=== PATIENT | female | born 1940 | race Caucasian/White ===

== ENCOUNTER → 2018-12-04 | Day surgery (SDC) | payer MEDICARE ==
[2018-11-29 15:46] LABS: BASOPHILS # (AUTO) 0.1 (0.0-0.1); BASOPHILS % 0.6 % (0.0-1.0); EOSINOPHILS % 0.1 % (0.0-6.0); HEMATOCRIT 45.1 % (34.2-44.1); HEMOGLOBIN 14.8 g/dL (12.0-16.0); LYMPHOCYTES # (AUTO) 2.3 (1.0-3.2); LYMPHOCYTES % 27.3 % (18.0-39.1); MEAN CORPUSCULAR HEMOGLOBIN 32.1 pg (28-32); MEAN CORPUSCULAR HGB CONC 32.8 g/dL (31-35); MEAN CORPUSCULAR VOLUME 97.8 fL (81-99); MONOCYTES # (AUTO) 0.7 (0.2-0.8); MONOCYTES % 7.9 % (4.4-11.3); NEUTROPHILS # (AUTO) 5.4 (2.1-6.9); NEUTROPHILS % 63.7 % (38.7-80.0); PLATELET COUNT 302 x10e3/uL (140-360); RED BLOOD COUNT 4.61 x10e6/uL (3.6-5.1); RED CELL DISTRIBUTION WIDTH 13.9 % (11.7-14.4)
[~2018-12-04] MED LIST: FENTANYL CITRATE/PF 100MCG/2 ML INJ ONE; GLUCAGON FOR INJ 1 MG VIAL ONE; LEVOTHYROXINE50 MCG PO; MIDAZOLAM HCL 2 MG/2 ML VIAL ONE; VERAPAMIL ER120 MG PO
--- OUTSIDE RECORDS SUMMARY | 2018-12-04 10:14 | XMS REPORT | Clinical Summary ---
Author Author Antonio [facility] Organization [facility] Address Unknown Phone Unavailable Care Team Providers Care Flight Controls Engineer Name Role Phone Asked, No Pcp PCP Unavailable Allergies Comments Active Allergy Reactions Severity Noted Date Prochlorperazine 08/16/2017 Medications End Date Status Medication Sig Dispensed Refills Start Date Active verapamil extended 0 release (VERELAN) 240 MG 7 24 hr capsule Active levothyroxine (SYNTHROID, 0 LEVOXYL) 50 mcg tablet 7 Active traMADol (ULTRAM) 50 mg 0 tablet 7 Active ergocalciferol (VITAMIN Take 50,000 0 D2) 50,000 unit capsule Units by mouth once a week. Active Problems Not on file Social History Date Tobacco Use Types Packs/Day Years Used Never Smoker Alcohol Use Drinks/Week oz/Week Comments No Sex Assigned at Date Recorded Not on file Industry Job Start Date Occupation Not on file Not on file Not on file Travel End Travel History Travel Start No recent travel history available. Last Filed Vital Signs Not on file Plan of Treatment Health Maintenance Due Date Last Done Comments BREAST CANCER SCREENING 1992 COLON CANCER SCREENING 1992 SHINGLES VACCINES (1 of 1992 2) PNEUMOCOCCAL 12/22/2007 POLYSACCHARIDE VACCINE AGE 65 AND OVER PNEUMOCOCCAL-13 12/22/2007 INFLUENZA VACCINE 05/15/2018 Results Not on fileafter 12/03/2017 Insurance Payer Benefit Subscriber ID Type Phone Address Plan / Group MEDICARE MEDICARE xxxxxxxxxx Medicare [place] PART A AND B CIGNA CIGNA xxxxxxxxxxx HMO HMO/POS CIGNA CIGNA xxxxxxxxxxx HMO HMO/POS MEDICAID MEDICAID xxxxxxxxx Medicaid Advance Directives Patient has advance care planning documents on file. For more information, gilda santos contact: Paco Sanchez [address] [place] [address]
--- OUTSIDE RECORDS SUMMARY | 2018-12-04 10:14 | XMS REPORT ---
Author Author [facility] Address Unknown Phone Unavailable Care Team Providers Care Edge Beader Name Role Phone KAYLA BUTTS PP Unavailable Problems This patient has no known problems. Allergies, Adverse Reactions, Alerts This patient has no known allergies or adverse reactions. Medications This patient has no known medications. Encounters Start Date/Time End Date/Time Encounter Type Admission Type Attending Clinicians Care Facility Care Department Encounter ID 2017-07-24 07:18:00 2017-07-24 07:18:00 Outpatient [facility] [id number] Results Test Description Test Time Test Comments Text Results Atomic Results Result Comments BONE DENSITOMETRY 2017-05-10 14:00:[address] [id number] IMAGING REPORTPatient Name: Ian VAZQUEZ of Service: [id number]: [id number] Sex: F Order #: [id number] Room: OPODOB: 1940 X-Ray Number: [id number] Record Number: [id number] Hospital Number: [id number] Physician: TERRY BUTTS [facility] Physician: TERRY BUTTS BBone densitometry 05/10/2017History: Osteoporosis screeningNo comparison.Region of interest evaluation in the lumbar spine from L1 to L4 shows a BMDof 0.898 g/sq cm with T score of -2.4. Left femoral neck BMD is 0.475 g/sqcm with T score of -4.0.FRAX results show 10 year probability of major osteoporotic fracture at 48%and hip fracture at 28%.Impression:Osteopenia of the lumbar spine and osteoporosis of the left femoral neckwith fracture risk as discussed.Electronically Signed By: Vinny Butts M.D., 05/10/2017 1:58 PMLegally authenticated by BENJAMÍN FERNANDEZ 2017-05-10 13:58:27 SPINE LUMBAR SACR 2017-03-28 12:00:[address], [place] [id number] IMAGING REPORTPatient Name: Ian VAZQUEZ of Service: [id number]: 76 Sex: F Order #: [id number] Room: OPODOB: 1940 X-Ray Number: [id number] Record Number: [id number] Hospital Number: [id number] Physician: TERRY BUTTS BOrdering Physician: TERRY BUTTS BLumbar spine series.Available clinical information: Nonradiating low back pain. Fall in 2011with fractures.Technique: The examination consists of AP, lateral, coned-down lateral,both oblique lumbar spine images.Findings: Bones are markedly osteoporotic. There is severe old compressionof L1 with about 80-90% height loss anteriorly. There is some retropulsionof bony material into the spinal canal. That is difficult to silverio quatelyassess on these images. The posterior limit of L1 appears to be at theleast 6 mm posteriorly displaced into the spinal canal. There is anteriorsubluxation of L5 on S1 by about 10 mm. There is some posterior subluxationof L2 on L3 by about 6 mm. This is probably due to advanced facetdegenerative change with slippage. There is severe narrowing of the L3-4,L4-5, and L5-S1 discs with moderate narrowing at L1-2 and L2-3. The SIjoints appear to be intact. Numerous surgical clips are seen in the upperabdomen.Impression:1. Marked old compression of L1 with retropulsion of bony material in thespinal canal. This may or may not be neurologically significant.2. Severe disc degenerative narrowing at multiple levels.3. Marked lower lumbar spine facet degenerative change.4. Grade 1 spondylolisthesis of L5 on S1, likely due to advanced facetdegenerative change and slippage.Electronically Signed By: Doc Ramsey M.D., 03/28/2017 11:58 AMLjoshlllyn authenticated by JACKY BEJARANO 2017-03-28 11:58:05
[2018-12-04 16:55] VITALS: BP 122/66
--- NOTE | 2018-12-06 06:41 | Operative Report ---
DATE OF PROCEDURE: 12/04/2018 SURGEON: Donny De Oliveira MD REFERRING PHYSICIAN: Dr. Juve Pena. PROCEDURES: EGD with esophageal dilatation and biopsy and a colonoscopy with polypectomy. INDICATIONS FOR EGD: Dysphagia, nausea, upper abdominal pain. INDICATIONS FOR COLONOSCOPY: Surveillance colonoscopy, personal history of colon polyps. MEDICATIONS: The patient was on MAC. Please anesthesiologist's note. PROCEDURE IN DETAIL: With the patient in left lateral decubitus position, a flexible fiberoptic Olympus gastroscope was introduced into the esophagus under direct visualization without any difficulty. There was some patchy erythema noted in distal esophagus. A minute tongue of velvety red mucosa was noted to extend proximally from the GE junction and biopsies were obtained to rule out Elizabeth's. There was a small hiatal hernia noted and the esophagus was dilated to size 52-[place]. The scope was then advanced with ease into the stomach. Mucosa overlying the antrum and the body revealed some diffuse erythema and moderate edema and biopsies were obtained and sent to stain for H. pylori. There was a patchy area of nodularity in the mid body anterior wall and that was biopsied. There were some postoperative changes noted in the prepyloric area. Pylorus was intubated with ease and the scope was advanced all the way to the second portion of the duodenum. Biopsies were obtained from the proximal second portion to rule out sprue. The scope was then withdrawn back into the stomach and retroflexed and obvious Neida fundoplication was noted. The scope was then straightened out, subsequently withdrawn. The patient tolerated the procedure well. IMPRESSION: 1. Distal esophagitis, mild. 2. Rule out Elizabeth esophagus. 3. Small hiatal hernia. 4. Esophageal dilated to size 52-[place]. 5. Status post Neida fundoplication. 6. Gastritis, biopsied. Biopsies sent to stain for Helicobacter pylori. 7. Postoperative changes in the prepyloric area. 8. Rule out sprue. PLAN: Follow up pathology. Initiate Protonix 40 mg 1 p.o. q.a.m. before meals. The patient was then turned around and after adequate lubrication of the anal canal, a flexible fiberoptic Olympus colonoscope was inserted into the rectum with ease and advanced to approximately in the distal ascending colon. It was not advanced any further due to the presence of large amount of retained fecal material. The scope was then withdrawn slowly and 1 polyp was snared from the transverse colon. Whatever was visualized, the rest of the transverse and descending, which was really minimal, grossly appeared to be within normal limits other than for some diverticular disease in the distal descending and the sigmoid colon. One polyp was hot biopsied from the sigmoid. In the rectum, whatever was visualized, the rectal mucosa appeared to be within normal limits. The scope was then retroflexed into the distal rectum and whatever was visualized of the area around it and grossly appeared to be within normal limits. The scope was then straightened out and was subsequently withdrawn. The patient tolerated the procedure well. IMPRESSION: 1. Poor prep. 2. Colonoscopy to distal ascending colon, could not advance any further secondary to the presence of large amount of retained fecal material. 3. Transverse colon polyp snared. 4. Diverticulosis. 5. Sigmoid colon polyp hot biopsied. PLAN: Follow up pathology. The patient will need a repeat colonoscopy after a better prep. Donny De Oliveira MD [facility] /[id number] cc: Juve Pena MD [place], [place]
== END | disposition home or self-care (01) ==
LOC: OR 10:11
PROVIDERS: ATTEND Internal Medicine Gastroenterology
DX: K22.2 Esophageal obstruction (principal); Z09 Encounter for follow-up examination after completed treatment for conditions other than malignant neoplasm; K21.0 Gastro-esophageal reflux disease with esophagitis; K57.30 Diverticulosis of large intestine without perforation or abscess without bleeding; K29.50 Unspecified chronic gastritis without bleeding; K44.9 Diaphragmatic hernia without obstruction or gangrene; K22.70 Barrett's esophagus without dysplasia; D12.5 Benign neoplasm of sigmoid colon; D12.3 Benign neoplasm of transverse colon; D50.9 Iron deficiency anemia, unspecified; Z01.812 Encounter for preprocedural laboratory examination; Z01.810 Encounter for preprocedural cardiovascular examination
CPT/HCPCS: 36415; 43239; 43450; 45384; 45385; 85025; 88305; 88312; 93005; J1610; J2250